=== PATIENT | male | born 1975 | race Caucasian/White ===

== ENCOUNTER 2016-08-26 18:31 | Observation (INO) ==
--- NOTE | 2016-08-26 19:17 | Emergency Department Note ---
Disposition Clinical Impression: Acute psychosis, Non-traumatic rhabdomyolysis, Hypokalemia Disposition: Admitted As Inpatient Condition: Fair Psych HPI - General Chief Complaint: ED Psychiatric Symptoms Stated Complaint: psych eval Time Seen by Provider: 08/26/16 18:53 Source: patient, family Mode of arrival: ambulatory Limitations: no limitations Nursing Notes Reviewed: Yes Vital Signs Reviewed: Yes - History of Present Illness HPI Narrative: Patient is 41-year-old male is brought in to the emergency department by his family for psych evaluation. They stated they were unable to find him in the past 24 hours. Ended up calling the police and found out that he was at the police station. He allegedly left car with the door open with his wallet and boots inside. They stated he was arrested for alcohol intoxication. The family states that recently he has been getting lost and talking in riddles. Patient denies any alcohol or drug use. Patient denies any suicidal or homicidal ideation. They stated that he has been diagnosed with a "mood disorder" the patient's story continues change throughout the interview. Family states that the patient's symptoms wax and wane. At times it feels like he is getting better and then suddenly gets significantly worse. - Related Data Previous Rx's Medication Instructions Recorded OLANZapine [Zyprexa] 5 mg PO BID #90 tablet 10/26/14 Allergies Allergy/AdvReac Type Severity Reaction Status Date / Time No Known Allergies Allergy Verified 10/23/14 13:51 All systems ED: reviewed and negative except as stated. Past Medical History - Past Medical History Medical history: Reports: no medical history Surgical history: Reports: other Psychiatric history: Reports: previous psychiatric hospitalization - Social History Smoking Status: Current every day smoker Smokeless Tobacco Status: No Alcohol use: Reports: none Drug use: Reports: none Physical Exam - General Limitations: no limitations General appearance: alert, in no apparent distress - Head Head exam: atraumatic, normocephalic - Eye Eye exam: Present: PERRL - Neck Neck exam: Present: normal inspection, full ROM, trachea midline - Chest Chest inspection: Present: symmetric chest wall rise - Respiratory Respiratory exam: Present: normal lung sounds bilaterally. Absent: respiratory distress, wheezes - Cardiovascular Cardiovascular exam: Present: regular rate, normal rhythm, bradycardia, +S1, +S2 - Abdominal Exam Abdominal exam: Present: soft, Non-Tender, normal bowel sounds - Neurological Exam Neurological exam: Present: alert, oriented X3, CN II-XII intact - Psychiatric Psychiatric exam: Present: normal mood, other (Unkempt). Absent: homicidal ideation, suicidal ideation - Skin Skin exam: Present: warm, dry, intact Course Vital Signs Temperature 98.0 F 08/26/16 18:42 Pulse Rate 71 08/26/16 18:42 Respiratory Rate 18 08/26/16 18:42 Blood Pressure 128/89 08/26/16 18:42 O2 Sat by Pulse Oximetry 97 08/26/16 18:42 Temperature 98.0 F 08/26/16 18:42 Pulse Rate 71 08/26/16 18:42 Respiratory Rate 18 08/26/16 22:17 Blood Pressure 121/80 08/26/16 22:17 O2 Sat by Pulse Oximetry 97 08/26/16 18:42 Oxygen Delivery Oxygen Delivery Room Air Psych - MDM Narrative Medical decision making narrative: Patient is a 41-year-old presents to the ED for psychiatric evaluation per family. Patient is alert and oriented times 4 but is sometimes get confused about his story of where he left his car. We had planned to clear the patient medically and do a psych consult. However upon doing a urine laboratory testing the patient appears to be in acute rhabdomyolysis. So we will administer fluids and replace his potassium here in the ER. Patient will be admitted to the hospital with the recommendation of a psych consult. The hospitalist has been called and they have accepted the patient. - Lab Data Lab results reviewed: Yes I reviewed the patient's lab results. Result diagrams: 08/26/16 19:50 08/26/16 19:50 Lab Results 08/26/16 08/26/16 08/26/16 Range/Units 19:17 19:17 19:50 WBC 7.1 (4.3-11.1) K/mcL RBC 4.29 (4.19-5.50) M/mcL Hgb 14.0 (12.9-16.9) g/dL Hct 39.8 (37.5-50.1) % MCV 92.8 (83.0-100.0) fL MCH 32.6 (28.0-33.3) pg MCHC 35.2 (31.6-35.5) g/dL RDW 13.0 (11.5-14.5) % Plt Count 194 (140-400) K/mcL MPV 10.8 (9.4-12.4) fL Immature Gran % 0.3 (0-4) % Seg Neutrophils % 57.5 % Lymphocytes % 29.2 % Monocytes % 11.1 % Eosinophils % 1.5 % Basophils % 0.4 % Neutrophils # 4.1 (1.6-8.9) K/mcL Lymphocytes # 2.1 (0.6-4.6) K/mcL Monocytes # 0.8 (0.0-1.3) K/mcL Eosinophils # 0.1 (0.0-0.6) K/mcL Basophils # 0.0 (0.0-0.2) K/mcL Sodium (136-145) mEq/L Potassium (3.5-4.5) mEq/L Chloride (98-109) mEq/L Carbon Dioxide (19-29) mEq/L BUN (8-26) mg/dL Creatinine (0.72-1.25) mg/dL Est GFR ( Amer) (> 60) Est GFR (Non-Af Amer) (> 60) BUN/Creatinine Ratio (6-26) Glucose (70-99) mg/dL Calculated Osmolality (280-300) Calcium (8.6-10.8) mg/dL Creatine Kinase (30-200) Units/L Urine Color Dark Yellow (Yellow) Urine Clarity Hazy (Clear) Urine pH 6.0 (5.0-8.0) pH Units Ur Specific [place] > 1.030 H (1.010-1.025) Urine Protein 30 H (Neg-Trace) mg/dL Urine Glucose (UA) Normal (Normal) mg/dL Urine Ketones 40 H (Negative) mg/dL Urine Blood Trace H (Negative) Urine Nitrite Negative (Negative) Urine Bilirubin Moderate H (Negative) Urine Urobilinogen Normal (Normal) mg/dL Ur Leukocyte Esterase Negative (Negative) Urine Microscopic RBC 0-3 (0-3) per hpf Urine Microscopic WBC 0-3 (0-3) per hpf Urine Bacteria Few (None-Few) per hpf Urine Mucus Few (Few) Salicylates (15-30) mg/dL Urine Opiates Screen Negative (Frpozo=171) ng/mL Acetaminophen (10-30) mcg/mL Ur Barbiturates Screen Negative (Jjcxxd=826) ng/mL Ur Phencyclidine Scrn Negative (Cutoff=25) ng/mL Ur Amphetamines Screen Negative (Ekzoti=4356) ng/mL U Benzodiazepines Scrn Negative (Gsebxm=830) ng/mL Urine Cocaine Screen Negative (Cutoff= 300) ng/mL U Marijuana (THC) Screen Negative (Cutoff = 50) ng/mL Ethyl Alcohol (0-10) mg/dL 08/26/16 Range/Units 19:50 WBC (4.3-11.1) K/mcL RBC (4.19-5.50) M/mcL Hgb (12.9-16.9) g/dL Hct (37.5-50.1) % MCV (83.0-100.0) fL MCH (28.0-33.3) pg MCHC (31.6-35.5) g/dL RDW (11.5-14.5) % Plt Count (140-400) K/mcL MPV (9.4-12.4) fL Immature Gran % (0-4) % Seg Neutrophils % % Lymphocytes % % Monocytes % % Eosinophils % % Basophils % % Neutrophils # (1.6-8.9) K/mcL Lymphocytes # (0.6-4.6) K/mcL Monocytes # (0.0-1.3) K/mcL Eosinophils # (0.0-0.6) K/mcL Basophils # (0.0-0.2) K/mcL Sodium 140 (136-145) mEq/L Potassium 2.9 L (3.5-4.5) mEq/L Chloride 103 (98-109) mEq/L Carbon Dioxide 27 (19-29) mEq/L BUN 17 (8-26) mg/dL Creatinine 0.82 (0.72-1.25) mg/dL Est GFR ( Amer) > 60 (> 60) Est GFR (Non-Af Amer) > 60 (> 60) BUN/Creatinine Ratio 21 (6-26) Glucose 85 (70-99) mg/dL Calculated Osmolality 291 (280-300) Calcium 9.2 (8.6-10.8) mg/dL Creatine Kinase 1196 H (30-200) Units/L Urine Color (Yellow) Urine Clarity (Clear) Urine pH (5.0-8.0) pH Units Ur Specific [place] (1.010-1.025) Urine Protein (Neg-Trace) mg/dL Urine Glucose (UA) (Normal) mg/dL Urine Ketones (Negative) mg/dL Urine Blood (Negative) Urine Nitrite (Negative) Urine Bilirubin (Negative) Urine Urobilinogen (Normal) mg/dL Ur Leukocyte Esterase (Negative) Urine Microscopic RBC (0-3) per hpf Urine Microscopic WBC (0-3) per hpf Urine Bacteria (None-Few) per hpf Urine Mucus (Few) Salicylates < 5.0 L (15-30) mg/dL Urine Opiates Screen (Fofwgf=705) ng/mL Acetaminophen < 1.0 L (10-30) mcg/mL Ur Barbiturates Screen (Cfdubs=731) ng/mL Ur Phencyclidine Scrn (Cutoff=25) ng/mL Ur Amphetamines Screen (Sjzjep=2138) ng/mL U Benzodiazepines Scrn (Aftuse=807) ng/mL Urine Cocaine Screen (Cutoff= 300) ng/mL U Marijuana (THC) Screen (Cutoff = 50) ng/mL Ethyl Alcohol < 10 (0-10) mg/dL - EKG Data EKG attestation: Yes I reviewed and interpreted this EKG. EKG results narrative: EKG shows sinus bradycardia. At a rate of 47 bpm MT interval 120, QRS duration of 103, QTC of 391, and a normal axis. No ischemic changes noted on this EKG. Psychiatric Medical Clearance - Medical Clearance Checklist Medical History: No Social History Section defined Current Vitals: Last Vital Signs Temp 98.0 F 08/26/16 18:42 Pulse 71 08/26/16 18:42 Resp 18 08/26/16 22:17 BP 121/80 08/26/16 22:17 Pulse Ox 97 08/26/16 18:42 Psychiatric Lab Panel: Drug Levels and Toxicity 08/26/16 08/26/16 19:17 19:50 Urine Opiates Screen Negative Acetaminophen < 1.0 L Ur Barbiturates Screen Negative Ur Phencyclidine Scrn Negative Ur Amphetamines Screen Negative U Benzodiazepines Scrn Negative Urine Cocaine Screen Negative U Marijuana (THC) Screen Negative Ethyl Alcohol < 10 Abnormal Labs: Abnormal lab results Potassium 2.9 mEq/L (3.5-4.5) L 08/26/16 19:50 Creatine Kinase 1196 Units/L (30-200) H 08/26/16 19:50 Ur Specific [place] > 1.030 (1.010-1.025) H 08/26/16 19:17 Urine Protein 30 mg/dL (Neg-Trace) H 08/26/16 19:17 Urine Ketones 40 mg/dL (Negative) H 08/26/16 19:17 Urine Blood Trace (Negative) H 08/26/16 19:17 Urine Bilirubin Moderate (Negative) H 08/26/16 19:17 Salicylates < 5.0 mg/dL (15-30) L 08/26/16 19:50 Acetaminophen < 1.0 mcg/mL (10-30) L 08/26/16 19:50 Statement of Medical Clearance: I have evaluated the patient, reviewed diagnostic information, and certify that the patient's medical condition is sufficiently stable that transfer to the psychiatric unit does not pose a significant risk of deterioration. Attestation Statement - Attestation Attestation: I personally interviewed and examined this patient and my medical decision- making was reviewed with the ED Resident Physician, Dr. Monroe. I agree with the documented findings, disposition and treatment plan as described except to the extent set forth below. Patient is a 41-year-old white male who is brought in by family today with concerns for mental status change. Patient has been hospitalized by the psychiatric floor here in the past for episodes of acute psychosis. Currently he is on fluoxetine but no other medications, patient later added that he does take Xanax when necessary as well. Family brought him in today because he disappeared for over 24 hours. Reportedly had driven his car off to a remote area parked his car left bikinis his wallet all his belongings including issues inside the car with the door open and proceeded to just walk. He was missing for over 24 hours and then was found by family. Patient comes in here he is pleasant cooperative, awake alert and oriented 4,, occasionally laughs inappropriately and has what appears to be poor judgment. Patient denies any physical symptoms here. He denies any history of falls or trauma while he was walking. Patient is poorly groomed poor hygiene but in no acute distress with stable vital signs on arrival. The patient's physical exam findings as documented. Due to his urine appeared very dark and reports of him walking for such a long period of time we did additional lab assessment including a CPK urine myoglobin following blood that was present in his urinalysis. Patient does have an elevated CPK concerning for acute rhabdo so IV fluids were initiated any urine myoglobin is pending at this time. Patient also with a low potassium and this is being replaced orally. Patient remained hemodynamically stable we will admit him medically for acute rhabdo and hypokalemia and patient will require a sitter as well as psych consult. Discussed the case with Dr. Guzman he has accepted patient for admission and patient will require a sitter on the floor. Discussed at 2134.
[2016-08-26 19:27] LABS: Bilirubin,Urine Moderate (Negative); Blood,Urine Trace (Negative); Color,Urine Dark Yellow (Yellow); Glucose,Urine (UA) Normal (Normal); Ketones,Urine 40 mg/dL (Negative); Leukocyte Esterase,Urine Negative (Negative); Nitrite,Urine Negative (Negative); Protein,Urine 30 mg/dL (Neg-Trace); Specific Gravity,Urine > 1.030 (1.010-1.025); Urobilinogen,Urine Normal (Normal)
[2016-08-26 19:28] LABS: Clarity,Urine Hazy (Clear)
[2016-08-26 19:34] LABS: Amphetamine Screen,Urine Negative ng/mL (Cutoff=1000); Barbiturate Screen,Urine Negative ng/mL (Cutoff=200); Benzodiazepines Screen,Urine Negative ng/mL (Cutoff=200); Cannabinoid Screen,Urine Negative ng/mL (Cutoff = 50); Cocaine Screen,Urine Negative ng/mL (Cutoff= 300); Opiate Screen,Urine Negative ng/mL (Cutoff=300); Phencyclidine Screen,Urine Negative ng/mL (Cutoff=25)
[2016-08-26 19:39] LABS: Bacteria,Urine Few per hpf (None-Few); Mucus,Urine Few (Few); RBC,Urine 0-3 per hpf (0-3); WBC,Urine 0-3 per hpf (0-3)
[2016-08-26] MEDS ORDERED: 0.9 % Sodium Chloride 1,000 ML IVC ONE (19:55)
[2016-08-26 19:56] LABS: Basophils % 0.4 %; Eosinophils # 0.1 K/mcL (0.0-0.6); Eosinophils % 1.5 %; Hematocrit 39.8 % (37.5-50.1); Immature Granulocytes % 0.3 % (0-4); Lymphocytes # 2.1 K/mcL (0.6-4.6); Lymphocytes % 29.2 %; Mean Corpuscular HGB Conc 35.2 g/dL (31.6-35.5); Mean Corpuscular Hemoglobin 32.6 pg (28.0-33.3); Mean Corpuscular Volume 92.8 fL (83.0-100.0); Mean Platelet Volume 10.8 fL (9.4-12.4); Monocytes # 0.8 K/mcL (0.0-1.3); Monocytes % 11.1 %; Neutrophils # 4.1 K/mcL (1.6-8.9); Platelet Count 194 K/mcL (140-400); Red Blood Count 4.29 M/mcL (4.19-5.50); Segmented Neutrophils % 57.5 %
[2016-08-26 20:20] LABS: Acetaminophen < 1.0 mcg/mL (10-30); BUN/Creatinine Ratio 21 (6-26); Blood Urea Nitrogen 17 mg/dL (8-26); Calcium 9.2 mg/dL (8.6-10.8); Carbon Dioxide 27 mEq/L (19-29); Chloride 103 mEq/L (98-109); Creatine Kinase 1196 Units/L (30-200); Ethanol < 10 mg/dL (0-10); Glucose 85 mg/dL (70-99); Osmolality,Calculated 291 (280-300); Potassium 2.9 mEq/L (3.5-4.5); Salicylate < 5.0 mg/dL (15-30); Sodium 140 mEq/L (136-145); eGFR For African Americans > 60 (> 60); eGFR For Non-African Americans > 60 (> 60)
[2016-08-26] MEDS ORDERED: 0.9 % Sodium Chloride 1,000 ML IVC SCH (21:45)
--- NOTE | 2016-08-26 23:30 | Internal Med History&Physical ---
<Calvin Hahn - Last Filed: 08/27/16 00:11> Date of Encounter: 08/27/16 Time of Encounter: 23:26 Assessment and Plan (1) Acute psychosis Current visit: Yes Status: Acute His symptoms and history certainly point to primary psychiatric disorder Will consult psychiatry, defer choice of medication to psych Although patient is not currently agitated or suicidal/homicidal, will place sitter at bedside as precaution (2) Non-traumatic rhabdomyolysis Current visit: Yes Status: Acute CK was 1196 and likely myoglobinuria on UA, suggesting mild rhabdo He was given a liter bolus in ED, will continue LR @ 150 ml/hr in setting of hypokalemia Recheck CK in AM and monitor kidney/electrolytes (3) Hypokalemia Current visit: Yes Status: Acute Will carefully replete in setting of rhabdo Recheck BMP in AM (4) DVT prophylaxis Current visit: Yes Status: Acute Heparin 5000 units BID Internal Medicine - H&P: HPI Chief complaint: altered mental status Admitted From: Home Plans for Post Hospital Care: Home History of present illness: Mr. Rich is a 41 year old male who was told to come to the ED by his family after an acute psychotic episode. Patient is a poor historian and does not remember all the details of the event. He states that he was at a gas station and was trying to purchase cigarettes, and then suddenly decided to take a walk in the [facility]. There is no family at bedside, but according to the ER documentation, family noted that he was missing for about 24 hours and decided to call the police. Apparently, he was arrested for alcohol intoxication and was already at the police station, however his urine drug screen including alcohol was negative. Currently denies any homicidal or some subtle thoughts, visual or auditory hallucinations. He does not have any chest pain, nausea, vomiting, shortness of breath, fevers. Patient does have a history of psychosis and was admitted to [facility] two years ago. He claims to be off any indication and is unsure how long he has been off them. According to documentation he was previously on antipsychotics and antidepressants. Past Med Surg Social Fam HX - Past Medical History Medical history: no medical history Psychiatric history: previous psychiatric hospitalization - Past Surgical History Surgical History: other - Social History Smoking Status: Heavy tobacco smoker Packs per day: 3 Smokeless Tobacco Status: No Alcohol use: none Drug use: none - Family History Father Hx Family Cardiac Disorders: Yes (HTN, heart disease) Hx Family GI Disorders: Yes (cirrhosis of liver, diverticulitis) Mother Hx Family Cardiac Disorders: Yes (varicose veins) Hx Family GI Disorders: No Hx Family Endocrine Disorder: Yes (bordelrine diabetic) Internal Medicine - H&P: Meds Paroxetine HCl [Paxil] 10 mg PO DAILY 08/26/16 [History] Allergies No Known Allergies Allergy (Verified 10/23/14 13:51) All Systems PM: A 10-system review of systems was performed and is negative for pertinent findings except as documented above in the HPI. - Constitutional Constitutional: no chills, no fever(s), no night sweats - EENT Eyes: no change in vision, no discharge, no pain, no photophobia Ears: no ear discharge, no ear pain, no tinnitus Nose, mouth and throat: no dysphagia, no nasal discharge, no neck pain, no sore throat - Cardiovascular Cardiovascular ROS IM: no chest pain, no diaphoresis, no dyspnea, no lightheadedness, no palpitations, no syncope - Respiratory Respiratory: no cough, no dyspnea, no wheezing, no excessive phlegm production - Gastrointestinal Gastrointestinal: no abdominal pain, no diarrhea, no hematemesis, no hematochezia, no melena, no nausea, no vomiting - Musculoskeletal Musculoskeletal ROS IM: no numbness, no tingling - Integumentary Integumentary IM: no rash, no unusual bruising - Neurological Neurological ROS: no confusion, no convulsions, no focal weakness, no numbness, no tingling, no tremor(s) - Constitutional Vitals: Temp Pulse Resp BP Pulse Ox 97.5 F L 58 16 136/81 98 08/26/16 22:33 08/26/16 22:33 08/26/16 22:33 08/26/16 22:33 08/26/16 22:33 General appearance: Present: cooperative, A&O X 3, pleasant, no acute distress, answers questions appropriately (but is poor historian) - Head Head exam: Present: atraumatic, normocephalic - Eye Eye exam: Present: PERRL, conjuntiva pink, sclera anicteric - Neck Neck exam general surgery: Present: supple, trachea midline. Absent: lymphadenopathy - Respiratory Respiratory exam: Present: CTAB. Absent: accessory muscle use, rales, rhonchi, wheezes - Cardiovascular Cardiovascular exam: Present: RRR, +S1, +S2. Absent: diastolic murmur, gallop, rubs, systolic murmur - GI/Abdominal GI/Abdominal exam: Present: normal bowel sounds, soft, no peritoneal signs. Absent: distended, tenderness - Extremities Exam Extremities exam: Present: warm, radial pulses palpable and symetrical. Absent : calf tenderness, cyanotic, pedal edema - Neurological Exam Neurological exam: Present: alert, oriented X3, no focal deficits. Absent: facial droop, speech deficit - Skin Skin exam: Present: dry, intact Internal Med - H&P Results - Labs CBC & Chem 7: 08/26/16 19:50 08/26/16 19:50 <Peter Sierra - Last Filed: 08/27/16 01:37> Date of Encounter: 08/27/16 - Cardiovascular Cardiovascular ROS IM: no chest pain, no dyspnea, no palpitations - Respiratory Respiratory: no cough, no hemoptysis - Genitourinary Genitourinary ROS male: no dysuria, no flank pain, no hematuria - Musculoskeletal Musculoskeletal ROS IM: no back pain, no muscle cramps, no muscle weakness - Psychiatric Psychiatric: no homicidal ideation, no suicidal ideation - Constitutional Vitals: Temp Pulse Resp BP Pulse Ox 97.5 F L 58 16 136/81 98 08/26/16 22:33 08/26/16 22:33 08/26/16 22:33 08/26/16 22:33 08/26/16 22:33 General appearance: Present: cooperative, A&O X 3, pleasant, no acute distress - Head Head exam: Present: atraumatic, normal inspection - Eye Eye exam: Present: EOMI, PERRL. Absent: scleral icterus Pupils: Present: normal accommodation - ENT ENT exam: Present: mucous membranes dry, normal exam - Neck Neck exam general surgery: Present: supple. Absent: tenderness - Respiratory Respiratory exam: Present: CTAB. Absent: rales, rhonchi, wheezes - Cardiovascular Cardiovascular exam: Present: RRR, +S1, +S2. Absent: systolic murmur - GI/Abdominal GI/Abdominal exam: Present: soft. Absent: hepatomegaly, splenomegaly, tenderness - Extremities Exam Extremities exam: Present: full ROM, warm. Absent: calf tenderness, tenderness Internal Med - H&P Results - Labs CBC & Chem 7: 08/26/16 19:50 08/26/16 19:50 - Attending Attestation I discussed the patient H[place], PMH, ROS, lab data, and exam findings with Dr. Hahn. I then saw and examined patient independently as well. Patient is sleeping, easily arousable, oriented x 3, and in no distress. He does not remember where he walked, how long he walked, and why he left his car at the gas station. He presently denies any SI, HI, hallucinations, or delusions. He does have history of psychosis and has been on anti-psychotic meds in the past. He will need psychiatry to see him in consult. Meanwhile, I agree and request 24 hour sitter. He needs IVF for his rhabdomyolysis and his dehydration. Other than my comments noted above and exam findings, I agree with Dr. Hahn's assessment and plan.
[2016-08-27] MEDS ORDERED: Ondansetron ODT 4 MG TAB.RAPDIS SL PRN (00:06)
[2016-08-27] MEDS ORDERED: Naloxone 0.4 MG/ML INJ IVP PRN (00:06)
[2016-08-27] MEDS ORDERED: Acetaminophen 325 MG TABLET PO PRN (00:06)
[2016-08-27] MEDS: Ringers Solution, Lactated 1,000 ML IVC SCH ×4 (00:41→23:29)
[2016-08-27 05:28] LABS: Basophils % 0.5 %; Eosinophils # 0.1 K/mcL (0.0-0.6); Hematocrit 37.4 % (37.5-50.1); Immature Granulocytes % 0.3 % (0-4); Lymphocytes # 2.3 K/mcL (0.6-4.6); Mean Corpuscular HGB Conc 34.8 g/dL (31.6-35.5); Mean Corpuscular Hemoglobin 32.8 pg (28.0-33.3); Mean Corpuscular Volume 94.4 fL (83.0-100.0); Mean Platelet Volume 11.2 fL (9.4-12.4); Monocytes # 0.6 K/mcL (0.0-1.3); Monocytes % 9.3 %; Neutrophils # 3.1 K/mcL (1.6-8.9); Platelet Count 173 K/mcL (140-400); Red Blood Count 3.96 M/mcL (4.19-5.50); Segmented Neutrophils % 49.9 %
[2016-08-27] MEDS: *HR* Heparin 5,000 UNIT/ML VIAL SQ SCH ×2 (05:29→16:46)
[2016-08-27 05:33] LABS: BUN/Creatinine Ratio 17 (6-26); Blood Urea Nitrogen 13 mg/dL (8-26); Calcium 8.8 mg/dL (8.6-10.8); Carbon Dioxide 28 mEq/L (19-29); Chloride 108 mEq/L (98-109); Creatine Kinase 892 Units/L (30-200); Glucose 95 mg/dL (70-99); Osmolality,Calculated 294 (280-300); Potassium 3.2 mEq/L (3.5-4.5); Sodium 142 mEq/L (136-145); eGFR For African Americans > 60 (> 60); eGFR For Non-African Americans > 60 (> 60)
--- NOTE | 2016-08-27 10:26 | Consult Note ---
Date of Encounter: 08/27/16 Time of Encounter: 10:18 Assessment & Recommendation (1) Acute psychosis Current visit: No Status: Resolved Assessment & Recommendation: Will likely need inpatient psychiatric admission once medically cleared. Will evaluate for meds after transfer. He is cooperative now. If anything is needed in the meantime can try low dose Haldol (5mg) for agitation/psychosis. History of Present Illness Requesting Physician: Sharla Molina Reason for consult: psychosis History of present illness: Mr. Rich is a 41 year old male who was picked up by police after his family reported him missing for 24 hours. His car was found with doors open and his wallet still inside. Arrested for acute intoxication but tox screen negative. Client denies any drug use and reports he has not had any alcohol "for a long time." He is unable to account for his whereabouts but claims he just wanted to go for a walk when asked why he left his car. Answered most questions appropriately but also had some strange thoughts. 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 When this fiction and nonfiction prose writer ultimately suggested he might need transferred to he asked "should I bring a shovel?" Reported a prior admission to before and thinks he was diagnosed with a mood disorder. However, he denies any history of depression or gertrudis. Denies current SI/HI/AH/VH. Not currently linked with outpatient services. No mental health meds. Claims he is physically healthy although he does have some rhabo and hypokalemia. Suspect a primary mental health disorder-Schizophrenia vs. Bipolar illness. Will likely need admission to and collateral info from family. CC: Sharla Molina Past Med Surg Social Fam HX - Past Medical History Medical history: no medical history - Past Psychiatric History Psychiatric history: Reports: previous psychiatric hospitalization Family psychiatric history: Unknown Family History of Suicide: Unknown - Past Surgical History Surgical History: other - Social History Smoking Status: Heavy tobacco smoker Smokeless Tobacco Status: No Alcohol use: none Drug use: none - Family History Father Hx Family Cardiac Disorders: Yes (HTN, heart disease) Hx Family GI Disorders: Yes (cirrhosis of liver, diverticulitis) Mother Hx Family Cardiac Disorders: Yes (varicose veins) Hx Family GI Disorders: No Hx Family Endocrine Disorder: Yes (bordelrine diabetic) Medications & Allergies Paroxetine HCl [Paxil] 10 mg PO DAILY 08/26/16 [History] Allergies No Known Allergies Allergy (Verified 10/23/14 13:51) Review of Systems Constitutional: Denies: fever, chills, weakness, weight change Eyes: Denies: eye pain, vision change Ears, Nose, Throat: Denies: ear pain, throat pain, dental pain, hearing loss, congestion Cardiovascular: Denies: chest pain, palpitations, dyspnea on exertion Respiratory: Denies: cough, dyspnea, wheezes Gastrointestinal: Denies: abdominal pain, nausea, vomiting, diarrhea, constipation Genitourinary male: Denies: urgency, dysuria, frequency, genital lesions Genitourinary female: Denies: urgency, dysuria, frequency, abnormal menses, dyspareunia Musculoskeletal: Denies: joint swelling, joint pain Integumentary: Denies: rash, lesions, pruritus Neurological: Denies: headache, weakness, numbness, memory loss Endocrine: Denies: fatigue, heat or cold intolerance Hematologic/Lymphatic: Denies: easy bruising, lymphadenopathy Allergic/Immunologic: Denies: urticaria, itchy eyes Mental Status Exam Patient orientation: Yes Person, Yes Time, Yes Place Level of alertness: Alert Patient appearance: Unkempt Behavior: calm, cooperative Psychomotor activity: Normal Eye contact: Maintains Eye Contact Mood description: Euthymic/stable Affect description: congruent with mood, full range Speech pattern: Normal rate, Normal rhythm, Normal tone Speech volume: Normal Thought process: Loose Associations Thought content: No Suicidal ideation, No Homicidal ideation, No Overt delusions Perceptual disturbances: No Auditory hallucinations, No Visual hallucinations Attention span: Capable of Focused Attention Memory description: Immediate Impaired Patient reliability: Questionable Historian Intelligence estimate: Average Judgment: Limited Insight: Minimal Results - Vital Signs Vital signs: Temp Pulse Resp BP Pulse Ox 97.9 F 53 14 112/81 98 08/27/16 06:52 08/27/16 06:52 08/27/16 06:52 08/27/16 06:52 08/27/16 06:52 - Labs Labs: Laboratory Last Values WBC 6.1 K/mcL (4.3-11.1) 08/27/16 04:46 RBC 3.96 M/mcL (4.19-5.50) L 08/27/16 04:46 Hgb 13.0 g/dL (12.9-16.9) 08/27/16 04:46 Hct 37.4 % (37.5-50.1) L 08/27/16 04:46 MCV 94.4 fL (83.0-100.0) 08/27/16 04:46 MCH 32.8 pg (28.0-33.3) 08/27/16 04:46 MCHC 34.8 g/dL (31.6-35.5) 08/27/16 04:46 RDW 13.0 % (11.5-14.5) 08/27/16 04:46 Plt Count 173 K/mcL (140-400) 08/27/16 04:46 MPV 11.2 fL (9.4-12.4) 08/27/16 04:46 Immature Gran % 0.3 % (0-4) 08/27/16 04:46 Seg Neutrophils % 49.9 % 08/27/16 04:46 Lymphocytes % 38.0 % 08/27/16 04:46 Monocytes % 9.3 % 08/27/16 04:46 Eosinophils % 2.0 % 08/27/16 04:46 Basophils % 0.5 % 08/27/16 04:46 Neutrophils # 3.1 K/mcL (1.6-8.9) 08/27/16 04:46 Lymphocytes # 2.3 K/mcL (0.6-4.6) 08/27/16 04:46 Monocytes # 0.6 K/mcL (0.0-1.3) 08/27/16 04:46 Eosinophils # 0.1 K/mcL (0.0-0.6) 08/27/16 04:46 Basophils # 0.0 K/mcL (0.0-0.2) 08/27/16 04:46 Sodium 142 mEq/L (136-145) 08/27/16 04:46 Potassium 3.2 mEq/L (3.5-4.5) L 08/27/16 04:46 Chloride 108 mEq/L (98-109) 08/27/16 04:46 Carbon Dioxide 28 mEq/L (19-29) 08/27/16 04:46 BUN 13 mg/dL (8-26) 08/27/16 04:46 Creatinine 0.78 mg/dL (0.72-1.25) 08/27/16 04:46 Est GFR ( Amer) > 60 (> 60) 08/27/16 04:46 Est GFR (Non-Af Amer) > 60 (> 60) 08/27/16 04:46 BUN/Creatinine Ratio 17 (6-26) 08/27/16 04:46 Glucose 95 mg/dL (70-99) 08/27/16 04:46 Calculated Osmolality 294 (280-300) 08/27/16 04:46 Calcium 8.8 mg/dL (8.6-10.8) 08/27/16 04:46 Creatine Kinase 892 Units/L (30-200) H 08/27/16 04:46 Urine Color Dark Yellow (Yellow) 08/26/16 19:17 Urine Clarity Hazy (Clear) 08/26/16 19:17 Urine pH 6.0 pH Units (5.0-8.0) 08/26/16 19:17 Ur Specific [place] > 1.030 (1.010-1.025) H 08/26/16 19:17 Urine Protein 30 mg/dL (Neg-Trace) H 08/26/16 19:17 Urine Glucose (UA) Normal mg/dL (Normal) 08/26/16 19:17 Urine Ketones 40 mg/dL (Negative) H 08/26/16 19:17 Urine Blood Trace (Negative) H 08/26/16 19:17 Urine Nitrite Negative (Negative) 08/26/16 19:17 Urine Bilirubin Moderate (Negative) H 08/26/16 19:17 Urine Urobilinogen Normal mg/dL (Normal) 08/26/16 19:17 Ur Leukocyte Esterase Negative (Negative) 08/26/16 19:17 Urine Microscopic RBC 0-3 per hpf (0-3) 08/26/16 19:17 Urine Microscopic WBC 0-3 per hpf (0-3) 08/26/16 19:17 Urine Bacteria Few per hpf (None-Few) 08/26/16 19:17 Urine Mucus Few (Few) 08/26/16 19:17 Salicylates < 5.0 mg/dL (15-30) L 08/26/16 19:50 Urine Opiates Screen Negative ng/mL (Srjzgi=183) 08/26/16 19:17 Acetaminophen < 1.0 mcg/mL (10-30) L 08/26/16 19:50 Ur Barbiturates Screen Negative ng/mL (Rmkflp=159) 08/26/16 19:17 Ur Phencyclidine Scrn Negative ng/mL (Cutoff=25) 08/26/16 19:17 Ur Amphetamines Screen Negative ng/mL (Kawiyy=7341) 08/26/16 19:17 U Benzodiazepines Scrn Negative ng/mL (Funivi=199) 08/26/16 19:17 Urine Cocaine Screen Negative ng/mL (Cutoff= 300) 08/26/16 19:17 U Marijuana (THC) Screen Negative ng/mL (Cutoff = 50) 08/26/16 19:17 Ethyl Alcohol < 10 mg/dL (0-10) 08/26/16 19:50 Consult Discharge Plan - Plan
[2016-08-27] MEDS ORDERED: Haloperidol Lactate 5 MG/ML VIAL IVP PRN (11:26)
--- NOTE | 2016-08-27 13:19 | Event Note ---
Date of Encounter: 08/27/16 Time of Encounter: 13:00 41 years old male with history of prior psychiatry hospitalizations. Patient is a poor historian and states that his health has been always good. He was brought to our ED by his family reported hematemesis in for one day. In our ED , he was diagnosed with nontraumatic rhabdomyolysis, hypokalemia, dehydration and acute psychosis. Appreciate psychiatry input. a/p 1. Rhabdomyolysis. CPK 1196. Received IV fluid hydration and repeat CPK is in the 800s. Continue aggressive IV fluid hydration. 2. Hypokalemia. Replete. 3. Acute psychosis. Haldol when necessary. Plan to transfer to our inpatient psychiatry unit when medically stable.
[2016-08-27] MEDS: Nicotine 21 MG PATCH.TD24 TD PRN (23:30)
[2016-08-28] MEDS: *HR* Heparin 5,000 UNIT/ML VIAL SQ SCH ×2 (05:30→18:00)
[2016-08-28 05:48] LABS: Basophils % 0.4 %; Eosinophils # 0.1 K/mcL (0.0-0.6); Eosinophils % 1.6 %; Hematocrit 36.6 % (37.5-50.1); Hemoglobin 12.7 g/dL (12.9-16.9); Immature Granulocytes % 0.3 % (0-4); Lymphocytes # 2.2 K/mcL (0.6-4.6); Lymphocytes % 32.1 %; Mean Corpuscular HGB Conc 34.7 g/dL (31.6-35.5); Mean Corpuscular Hemoglobin 32.9 pg (28.0-33.3); Mean Corpuscular Volume 94.8 fL (83.0-100.0); Mean Platelet Volume 11.6 fL (9.4-12.4); Monocytes # 0.5 K/mcL (0.0-1.3); Monocytes % 7.2 %; Neutrophils # 4.1 K/mcL (1.6-8.9); Platelet Count 163 K/mcL (140-400); Red Blood Count 3.86 M/mcL (4.19-5.50); Red Cell Distribution Width 13.1 % (11.5-14.5); Segmented Neutrophils % 58.4 %
[2016-08-28 06:16] LABS: Alanine Aminotransferase 7 Units/L (0-55); Albumin 2.9 g/dL (3.5-5.0); Albumin/Globulin Ratio 1.2 (1.1-2.2); Alkaline Phosphatase 65 Units/L (38-126); Aspartate Amino Transferase 23 Units/L (5-34); BUN/Creatinine Ratio 11 (6-26); Bilirubin,Direct 0.2 mg/dL (0.0-0.5); Bilirubin,Indirect 0.3 mg/dL (0.0-1.2); Bilirubin,Total 0.5 mg/dL (0.2-1.2); Blood Urea Nitrogen 8 mg/dL (8-26); Calcium 8.6 mg/dL (8.6-10.8); Carbon Dioxide 29 mEq/L (19-29); Chloride 111 mEq/L (98-109); Creatine Kinase 391 Units/L (30-200); Globulin 2.4 g/dL (2.4-3.5); Glucose 90 mg/dL (70-99); Magnesium 1.8 mg/dL (1.6-2.6); Osmolality,Calculated 294 (280-300); Sodium 143 mEq/L (136-145); Total Protein 5.3 g/dL (6.0-8.3); eGFR For African Americans > 60 (> 60); eGFR For Non-African Americans > 60 (> 60)
[2016-08-28] MEDS ORDERED: Ringers Solution, Lactated 1,000 ML IVC SCH (07:29)
[2016-08-28] MEDS ORDERED: Magnesium Sulfate 1 GM in D5% in Water 100 ML IVPB STA (07:29)
--- NOTE | 2016-08-28 15:09 | Electrocardiograph Report ---
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
--- NOTE | 2016-08-28 17:23 | Internal Med Progress Note ---
Date of Encounter: 08/28/16 Time of Encounter: 13:15 - Assessment and plan (1) Acute psychosis Current Visit: Yes Status: Acute Assessment and plan: Haldol when necessary. Plan to transfer to our inpatient psychiatry unit when medically stable. (2) Non-traumatic rhabdomyolysis Current Visit: Yes Status: Acute Assessment and plan: On admission, his CPK was 1196. Clinically slowly improving. CPK is trending down however I am concerned about poor oral intake from patient. I will stop IV fluids and repeat CPK in the morning and if it is normal I will transfer him to our inpatient psychiatry unit. (3) Hypokalemia Current Visit: Yes Status: Acute Assessment and plan: Replete. - Subjective Interval history: Patient has her oral intake. He has no complaints. - Constitutional Vitals: Temp Pulse Resp BP Pulse Ox 97.6 F 59 16 143/92 98 08/28/16 15:18 08/28/16 15:18 08/28/16 15:18 08/28/16 15:18 08/28/16 15:18 General appearance: Present: cooperative, A&O X 3, pleasant, no acute distress - Eye Eye exam: Present: PERRL, sclera anicteric - Neck Neck exam general surgery: Present: supple, trachea midline. Absent: lymphadenopathy - Respiratory Respiratory exam: Present: CTAB - Cardiovascular Cardiovascular exam: Present: RRR - GI/Abdominal GI/Abdominal exam: Present: normal bowel sounds, soft. Absent: distended, tenderness - Extremities Exam Extremities exam: Absent: pedal edema - Back Exam Back exam: Absent: CVA tenderness (L), CVA tenderness (R) - Neurological Exam Neurological exam: Present: alert, strengths equal and symetr throughout. Absent: facial droop, speech deficit - Skin Skin exam: Absent: rash Internal Medicine: Result - Labs CBC & Chem 7: 08/28/16 05:18 08/28/16 10:03 Labs: Short CBC 08/28/16 Range/Units 05:18 WBC 7.0 (4.3-11.1) K/mcL Hgb 12.7 L (12.9-16.9) g/dL Hct 36.6 L (37.5-50.1) % Plt Count 163 (140-400) K/mcL Neutrophils # 4.1 (1.6-8.9) K/mcL BMP 08/28/16 08/28/16 05:18 10:03 Sodium 143 Potassium 3.0 L 3.3 L Chloride 111 H Carbon Dioxide 29 BUN 8 Creatinine 0.76 Glucose 90 Calcium 8.6 Liver Function 08/28/16 Range/Units 05:18 Total Bilirubin 0.5 (0.2-1.2) mg/dL Direct Bilirubin 0.2 (0.0-0.5) mg/dL AST 23 (5-34) Units/L ALT 7 (0-55) Units/L Alkaline Phosphatase 65 (38-126) Units/L Albumin 2.9 L (3.5-5.0) g/dL Consult Discharge Plan - Plan Referrals: NO,PCP [Primary Care Provider] - (Please call [phone] to establish primary care. )
[2016-08-28] MEDS: Ringers Solution, Lactated 1,000 ML IVC SCH (19:52)
[2016-08-28] MEDS: Nicotine 21 MG PATCH.TD24 TD PRN (23:35)
[2016-08-29 03:52] LABS: Basophils % 0.5 %; Eosinophils # 0.1 K/mcL (0.0-0.6); Eosinophils % 1.4 %; Hematocrit 40.8 % (37.5-50.1); Immature Granulocytes % 0.4 % (0-4); Lymphocytes # 2.5 K/mcL (0.6-4.6); Lymphocytes % 44.5 %; Mean Corpuscular HGB Conc 34.3 g/dL (31.6-35.5); Mean Corpuscular Hemoglobin 32.4 pg (28.0-33.3); Mean Corpuscular Volume 94.4 fL (83.0-100.0); Mean Platelet Volume 11.5 fL (9.4-12.4); Monocytes # 0.4 K/mcL (0.0-1.3); Monocytes % 7.2 %; Neutrophils # 2.6 K/mcL (1.6-8.9); Platelet Count 188 K/mcL (140-400); Red Blood Count 4.32 M/mcL (4.19-5.50); Red Cell Distribution Width 13.2 % (11.5-14.5)
[2016-08-29 04:11] LABS: BUN/Creatinine Ratio 5 (6-26); Carbon Dioxide 27 mEq/L (19-29); Chloride 110 mEq/L (98-109); Creatine Kinase 302 Units/L (30-200); Glucose 89 mg/dL (70-99); Osmolality,Calculated 292 (280-300); Potassium 3.4 mEq/L (3.5-4.5); Sodium 143 mEq/L (136-145); eGFR For African Americans > 60 (> 60); eGFR For Non-African Americans > 60 (> 60)
[2016-08-29 04:12] LABS: Blood Urea Nitrogen 4 mg/dL (8-26)
[2016-08-29] MEDS: *HR* Heparin 5,000 UNIT/ML VIAL SQ SCH (05:08)
--- NOTE | 2016-08-29 10:56 | Discharge Summary ---
Date of Encounter: 08/29/16 Time of Encounter: 10:55 - Discharge Diagnosis (1) Acute psychosis Priority: Primary Status: Acute (2) Non-traumatic rhabdomyolysis Priority: Primary Status: Acute (3) Hypokalemia Priority: Primary Status: Acute - Discharge Medications Home Medications: Paroxetine HCl [Paxil] 10 mg PO DAILY 08/26/16 [History] Allergies/Adverse Reactions: Allergies No Known Allergies Allergy (Verified 10/23/14 13:51) Date of admission: 08/26/16 21:52 Primary care physician: PCP NO Consults: 08/26/16 22:52 Consult to Per Diem Nurse [CONS] Routine Reason for SW Consult: Discharge planning 08/27/16 00:10 Consult to Psychiatry [CONS] Routine Consulting Provider: Liana Galeano Reason for Consult: psychotic episode Time Notified: 00:10 Call Completed: Yes - Patient Status Disposition: Transfer Psychiatric Hosp Condition: Good Functional capacity at discharge: independent ambulation Overall status at discharge: patient is progressing back to baseline - Discharge Instructions Follow Up With: NO,PCP [Primary Care Provider] - (Please call [phone] to establish primary care. ) Forms: ED Satisfaction Letter - Diet and Activity Activity: resume usual activities as tolerated Diet: regular diet Interval History: Patient has no complaints. Hospital course: Mr. Rich is a 41 year old male with past medical history of tobacco use and prior psychiatric hospitalizations who was brought by family because of changes in his mental status. Patient is in acute psychosis and unable to provide any acute deep tail of his presentation. Per ER documentation, family noted that he was missing for about 24 hours and decided to call the police. Apparently, he was already arrested for alcohol intoxication and was at the police station. He was admitted with diagnosis of rhabdomyolysis and hypokalemia with a CPK of 1196. He was started on IV fluid hydration with clinical improvement. CPK 302 at discharge. His potassium was corrected. Our psychiatry service as is the patient and recommended transfer to our inpatient psychiatry unit. - Time Spent with Patient Total time spent providing and/or coordinating discharge services: - Constitutional Vitals: Temp Pulse Resp BP Pulse Ox 97.6 F 58 15 131/88 97 08/29/16 03:20 08/29/16 03:20 08/29/16 03:20 08/29/16 03:20 08/29/16 03:20 General appearance: Present: cooperative, A&O X 3, pleasant, no acute distress - Neck Neck exam general surgery: Present: supple, trachea midline. Absent: lymphadenopathy - Respiratory Respiratory exam: Present: CTAB - Cardiovascular Cardiovascular exam: Present: RRR - GI/Abdominal GI/Abdominal exam: Present: normal bowel sounds, soft. Absent: distended, tenderness - Extremities Exam Extremities exam: Absent: pedal edema - Back Exam Back exam: Absent: CVA tenderness (L), CVA tenderness (R) - Neurological Exam Neurological exam: Present: alert, no focal deficits, strengths equal and symetr throughout. Absent: facial droop, speech deficit
[2016-08-29 11:44] VITALS: BP 129/90
== END 2016-08-29 17:00 ==
LOC: 3BNU 18:31 → EMEROO 18:31 → SUATTDRO 21:52 → 3BNU 22:19
PROVIDERS: ADMIT Pediatrics; ATTEND Internal Medicine

== ENCOUNTER 2016-08-29 16:34 | Observation (INO) ==
[2016-08-29] MEDS ORDERED: hydrOXYzine pamoate 25 MG CAPSULE PO PRN (17:17)
[2016-08-29] MEDS ORDERED: Mag Hydrox/Al Hydrox/Simeth 30 ML UDC PO PRN (17:17)
[2016-08-29] MEDS ORDERED: Ibuprofen 400 MG TABLET PO PRN (17:17)
[2016-08-29] MEDS ORDERED: *HR* LORazepam 1 MG TABLET PO PRN (17:17)
[2016-08-29] MEDS ORDERED: traZODone 50 MG TABLET PO PRN (17:17)
[2016-08-29] MEDS ORDERED: Haloperidol Lactate 5 MG/ML VIAL IM PRN (17:17)
[2016-08-29] MEDS ORDERED: *HR* LORazepam 2 MG/ML VIAL IM PRN (17:17)
[2016-08-29] MEDS ORDERED: MOM Conc 10 ML UD.LIQ PO PRN (17:17)
[2016-08-30] MEDS ORDERED: Nicotine 21 MG PATCH.TD24 TD SCH (09:00)
[2016-08-30 09:43] VITALS: BP 128/92
--- NOTE | 2016-08-30 10:58 | Psychiatry History & Physical ---
Date of Encounter: 08/30/16 Time of Encounter: 10:00 History of Present Illness Patient Stated Chief Complaint: "I dont know why Im here" Medicare Admission Attestation: For traditional Medicare patients the provided hospital inpatient services are reasonable and necessary and in the case of services not specified as inpatient -only under 42 CFR 419.22 (n), that they are appropriately provided as inpatient services in accordance 42 CFR 412.3. For Critical Access Hospital the patient may reasonably be expected to be discharged or transferred to a hospital within 96 hours after admission to the Critical Access Hospital. Mr. 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 Patient was seen by psych consult during admission with recommendation for transfer to the unit after he was been medically stabilized. Patient previously known to service and was last seen in 2014 with a diagnosis of Mood disorder and Psychosis. He was then discharged on Zyprexa and Paxil. Patient seen and evaluated this morning. He was calm, pleasant and well related. He is unable to recall details of events prior to his admission to the hospital. He remembered his car breaking down on his way from work and decided to walk home since he did not have his cell phone with him. He reported was doing well with no mood and psychotic symptoms prior to his admission. He currently is prescribed Paxil and Xanax by his PCP for anxiety. He denied any psych contact after his last hospitalization in 2014. He reports feeing well both physically and mentally and denied any mood or psychotic symptoms. He is sleeping and eating well and reported no specific complaints. He denied recent h /o of illcit drug use. Patient is logical and goal directed with a fair impulse control and judgment. He plans to go back to live with his parents after his discharge from the hospital. Patient also is open to out patient mental health follow up after his discharge. History of Present Illness: Mr. Rich is a 41 year old male Past Med Surg Social Fam HX - Past Medical History Medical history: no medical history - Past Psychiatric History Psychiatric history: Reports: anxiety, bipolar, previous psychiatric hospitalization Family psychiatric history: Unknown Family History of Suicide: None - Past Surgical History Surgical History: other - Social History Smoking Status: Heavy tobacco smoker Smokeless Tobacco Status: No Alcohol use: none Drug use: none - Family History Father Hx Family Cardiac Disorders: Yes (HTN, heart disease) Hx Family GI Disorders: Yes (cirrhosis of liver, diverticulitis) Mother Hx Family Cardiac Disorders: Yes (varicose veins) Hx Family GI Disorders: No Hx Family Endocrine Disorder: Yes (bordelrine diabetic) Medications & Allergies Paroxetine HCl [Paxil] 10 mg PO QAM 08/26/16 [History] Allergies No Known Allergies Allergy (Verified 10/23/14 13:51) Review of Systems Constitutional: Denies: fever, chills, weakness, weight change Eyes: Denies: eye pain, vision change Ears, Nose, Throat: Denies: ear pain, throat pain, dental pain, hearing loss, congestion Cardiovascular: Denies: chest pain, palpitations, dyspnea on exertion Respiratory: Denies: cough, dyspnea, wheezes Gastrointestinal: Denies: abdominal pain, nausea, vomiting, diarrhea, constipation Genitourinary male: Denies: urgency, dysuria, frequency, genital lesions Genitourinary female: Denies: urgency, dysuria, frequency, abnormal menses, dyspareunia Musculoskeletal: Denies: joint swelling, joint pain Integumentary: Denies: rash, lesions, pruritus Neurological: Denies: headache, weakness, numbness, memory loss Endocrine: Denies: fatigue, heat or cold intolerance Hematologic/Lymphatic: Denies: easy bruising, lymphadenopathy Allergic/Immunologic: Denies: urticaria, itchy eyes Mental Status Exam Patient orientation: Yes Person, Yes Time, Yes Place Level of alertness: Alert Patient appearance: Appropriate Behavior: calm, cooperative Psychomotor activity: Normal Eye contact: Maintains Eye Contact Mood description: Euthymic/stable Affect description: congruent with mood, full range Speech pattern: Normal rate, Normal rhythm, Normal tone Speech volume: Normal Thought process: Linear, Goal Oriented Thought content: No Suicidal ideation, No Homicidal ideation, No Overt delusions Perceptual disturbances: No Auditory hallucinations, No Visual hallucinations Attention span: Capable of Focused Attention Memory description: Grossly Intact Patient reliability: Reliable Historian Intelligence estimate: Average Judgment: Fair Insight: Full Results - Vital Signs Vital signs: Temp Pulse Resp BP 98.0 F 111 16 128/92 08/30/16 09:00 08/30/16 09:00 08/30/16 09:00 08/30/16 09:00 Assessment and Plan (1) Anxiety Current visit: Yes Status: Acute (2) Mood disorder Current visit: No Status: Chronic
--- NOTE | 2016-08-30 11:03 | Discharge Summary ---
Date of Encounter: 08/30/16 Time of Encounter: 11:01 Diagnosis - Discharge Diagnosis (1) Anxiety Status: Chronic (2) Mood disorder Status: Chronic Medications - Discharge Medications Paroxetine HCl [Paxil] 10 mg PO QAM 08/26/16 [History] Allergies No Known Allergies Allergy (Verified 10/23/14 13:51) Provider Date of admission: 08/29/16 16:34 Primary care physician: PCP NO Discharging clinician: Padmini Oliveira Assessment and Plan - Patient/Caregiver Discharge Instructions Activity: resume usual activities as tolerated, return to work Diet: regular diet - Follow up Plan Follow up with: [facility] [Outside] - 09/20/16 2:00 pm (The above appointment is with Thelma Griggs, for mental health counseling services. Please arrive 10 minutes early to complete the check-in process. Please bring your insurance card and photo ID. If you are unable to keep this appointment, 24 hour business notice of cancellation is expected. If you miss your new patient appointment without providing appropriate notice, you cannot be re-scheduled. This is the first available appointment. You may contact the office regularly to check for cancellations that may allow you to be seen sooner. The [facility] is the 1st building behind [facility] in [place], [place]. Please do not use GPS or mapping apps to locate the office, as they will take you to the wrong location. ) Rosio Link MD [Non-Partnered Physician] - (The office is closed today. Hospital staff will call the office tomorrow to obtain your follow-up appointment and contact you with that. The office is now located at [address] [place] [address]) Disposition: Home, Self-Care Hospital Course Hospital course: Mr. Rich is a 41 year old male Mr. 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 Patient was seen by psych consult during admission with recommendation for transfer to the unit after he was been medically stabilized. Patient previously known to service and was last seen in 2014 with a diagnosis of Mood disorder and Psychosis. He was then discharged on Zyprexa and Paxil. Patient seen and evaluated this morning. He was calm, pleasant and well related. He is unable to recall details of events prior to his admission to the hospital. He remembered his car breaking down on his way from work and decided to walk home since he did not have his cell phone with him. He reported was doing well with no mood and psychotic symptoms prior to his admission. He currently is prescribed Paxil and Xanax by his PCP for anxiety. He denied any psych contact after his last hospitalization in 2014. He reports feeing well both physically and mentally and denied any mood or psychotic symptoms. He is sleeping and eating well and reported no specific complaints. He denied recent h /o of illcit drug use. Patient is logical and goal directed with a fair impulse control and judgment. He plans to go back to live with his parents after his discharge from the hospital. Patient also is open to out patient mental health follow up after his discharge. Patient is psychiatrically stable at present time and not deem a risk to self or others. - Time Spent with Patient Total time spent providing and/or coordinating discharge services: Quality - Multiple Antipsychotics Patient discharged on 2 or more antipsychotic medications: No Mental Status Exam - Mental Status Exam Patient orientation: Yes Person, Yes Time, Yes Place Level of alertness: Alert Patient appearance: Appropriate, Well Groomed Behavior: calm, cooperative Psychomotor activity: Normal Eye contact: Maintains Eye Contact Mood description: Euthymic/stable Affect description: congruent with mood, full range Speech pattern: Normal rate, Normal rhythm, Normal tone Speech Volume: Normal Thought process: Linear, Goal Oriented Thought Content: No Suicidal ideation, No Homicidal ideation, No Overt delusions Perceptual Disturbances: No Auditory hallucinations, No Visual hallucinations Judgment: Fair Insight: Full
== END 2016-08-30 12:45 | disposition home or self-care (01) ==
LOC: 1ANU 16:34 → INTOOBSV 16:34
PROVIDERS: ADMIT Psychiatry & Neurology Psychiatry; ATTEND Psychiatry & Neurology Psychiatry